=== PATIENT | female | born 1935 | race Caucasian/White ===

== ENCOUNTER 2022-08-19 16:27 | Inpatient (IN) | payer OTHER, MEDICAID ==
[~2022-08-19] VITALS: Ht 154.9 cm; Wt 79.8 kg
--- NOTE | 2022-08-19 16:29 | NUR ---
PATIENT BIBA TO BED 10
[2022-08-19 16:30] VITALS: BP 132/47
[2022-08-19] MEDS ORDERED: IPRATROPIUM 0.02% 0.5 MG/2.5 ML NEBU INH ONE (16:35)
[2022-08-19] MEDS ORDERED: ALBUTEROL 0.083% 2.5 MG/3 ML NEBU INH ONE (16:35)
[2022-08-19 17:00] LABS: BASOPHILS % (AUTO) 0.5 % (0.0-2.0); EOSINOPHILS # (AUTO) 0.1 K/uL (0-0.4); EOSINOPHILS % (AUTO) 1.2 % (0.0-4.0); HEMATOCRIT 37.6 % (36-48); HEMOGLOBIN 12.5 g/dL (12.0-16.0); LYMPHOCYTES # (AUTO) 1.5 K/uL (2.5-16.5); LYMPHOCYTES % (AUTO) 21.1 % (20.5-51.1); MEAN CORPUSCULAR HEMOGLOBIN 28 pg (27-31); MEAN CORPUSCULAR HGB CONC 33 g/dL (33-37); MONOCYTES # (AUTO) 1.2 K/uL (0.8-1.0); MONOCYTES % (AUTO) 16.9 % (1.7-9.3); NEUTROPHILS # (AUTO) 4.3 K/uL (1.8-7.7); NEUTROPHILS % (AUTO) 60.3 % (42.2-75.2); PLATELET COUNT (AUTO) 138 K/uL (140-450); RED BLOOD CELL COUNT(AUTO) 4.53 MIL/uL (4.20-5.40); RED CELL DISTRIBUTION WIDTH 19.1 % (11.6-13.7); WHITE BLOOD COUNT (AUTO) 7.1 K/uL (4.8-10.8)
--- NOTE | 2022-08-19 17:25 | NUR ---
ASSUMED PATIENT CARE, NURSING ASSESSMENT COMPLETED.
[2022-08-19] MEDS ORDERED: CEFEPIME 1,000 MG in DEXTROSE 5% 50 ML IV ONE (17:30)
[2022-08-19 17:32] LABS: ALBUMIN 3.1 g/dL (3.4-5.0); ANION GAP 11.6 (8-16); ASPARTATE AMINOTRANSFERASE 28 U/L (15-37); CARBON DIOXIDE 28.4 mmol/L (21-32); CHLORIDE 88 mmol/L (98-107); GLUCOSE 117 mg/dL (74-106); SODIUM SERUM 124 mmol/L (136-145); UREA NITROGEN, BLOOD 24 mg/dL (7-18)
[2022-08-19] MEDS ORDERED: CEFEPIME 1,000 MG VIAL ONE (17:33)
[2022-08-19] MEDS ORDERED: NACL 0.9% 1,000 ML IV ONE (19:00)
[2022-08-19 19:20] VITALS: BP 104/44
[2022-08-19] MEDS ORDERED: LIRA6SOL1 SQ (19:51)
[2022-08-19] MEDS ORDERED: INSU100V19 SQ (19:51)
[2022-08-19] MEDS ORDERED: TRAV5SOL OP (19:51)
[2022-08-19] MEDS ORDERED: GABA400C PO (19:51)
[2022-08-19] MEDS ORDERED: CARV6.25 PO (19:51)
[2022-08-19] MEDS ORDERED: SIMV-373 PO (19:51)
[2022-08-19] MEDS ORDERED: FLONAS NS (19:51)
[2022-08-19] MEDS ORDERED: LORA10TA19 PO (19:51)
[2022-08-19] MEDS ORDERED: ASPI-1822 PO (19:51)
[2022-08-19] MEDS ORDERED: FURO-572 PO (19:51)
[2022-08-19] MEDS ORDERED: METF-1139 PO (19:51)
[2022-08-19] MEDS ORDERED: POTA10TA70 PO (19:51)
[2022-08-19] MEDS ORDERED: DORZ10DR3 OP (19:51)
[2022-08-19] MEDS ORDERED: HUM SUBQ (19:51)
--- NOTE | 2022-08-19 20:28 | NUR ---
PT UPGRADED TO ICU FOR DESATING, YOLY PIEDRA.
[2022-08-19] MEDS ORDERED: DEXTROSE 50% 50 ML SYR IVP ONE (20:35)
[2022-08-19] MEDS ORDERED: MORPHINE SULFATE 2 MG/ML SYR IVP PRN (22:00)
[2022-08-19] MEDS ORDERED: DOCUSATE SODIUM 100 MG GELCAP PO PRN (22:00)
[2022-08-19] MEDS ORDERED: ONDANSETRON 4 MG/2 ML VIAL IVP PRN (22:00)
[2022-08-19] MEDS ORDERED: ZOLPIDEM 10 MG TAB PO PRN (22:00)
[2022-08-19] MEDS ORDERED: LORazepam 2 MG/ML VIAL IVP PRN (22:00)
[2022-08-19] MEDS ORDERED: ACETAMINOPHEN 325 MG TAB PO PRN (22:00)
[2022-08-19] MEDS ORDERED: PIPERACILLIN/TAZOBACTAM 3.375 GM VIAL IV ONE (22:05)
[2022-08-19 22:24] VITALS: BP 109/41
[2022-08-19] MEDS: PIPERACILLIN/TAZOBACTAM 3.375 GM in DEXTROSE 5% 50 ML IV SCH (22:25)
[2022-08-20] VITALS (12 sets, daily range): BP systolic 110–168; BP diastolic 41–81
--- NOTE | 2022-08-20 00:40 | NUR ---
RECEIVED PT. FROM ER VIA ZEINAB. REPORT GIVEN BY HERMINIO MORILLO. PT.WIDE AWAKE, MALIAN SPEAKING, ALERT AND ORIENTED.PT. ON BIPAP RATE 10, I-10,E-5,FIO2 40%. BILATERAL LUNG SOUNDS DIMINISHED. HR IN THE GREATER 40'S AND PER CLIENT ACCOUNT SPECIALISTMD AWARE AND OK WITH IT LONG BP WITHIN NORMAL LIMIT. RECEIVED V/S BP 113/47,R 16, O2 SAT 100%. IV SITE TO LEFT AC 18G FLUSHED AND CAPPED. SKIN INTACT. PLACED IN COMFORTABLE POSITION. PLACED CALL LIGHT WITHIN REACH. PROVIDED SAFE AND QUIET ENVIRONMENT. AT THE BEDSIDE. WILL CONT. TO MONITOR.
--- NOTE | 2022-08-20 03:15 | NUR ---
CALLED SHELLIE (PT.SON) AND ASKED HIM, IN THE EVENT THAT THE MOM CONDITION GOES DOWN AND DYING WHAT DOES HE WANTS TO DO AND SHELLIE STATED " DO EVERYTHING FOR MY MOM". WILL ENDORSE TO THE NEXT SHIFT.
[2022-08-20 05:23] LABS: BASOPHILS % (AUTO) 0.3 % (0.0-2.0); EOSINOPHILS % (AUTO) 0.5 % (0.0-4.0); HEMATOCRIT 37.1 % (36-48); HEMOGLOBIN 12.2 g/dL (12.0-16.0); LYMPHOCYTES # (AUTO) 1.5 K/uL (2.5-16.5); LYMPHOCYTES % (AUTO) 16.6 % (20.5-51.1); MEAN CORPUSCULAR HEMOGLOBIN 27 pg (27-31); MEAN CORPUSCULAR HGB CONC 33 g/dL (33-37); MEAN CORPUSCULAR VOLUME 82.8 fL (80-94); MONOCYTES # (AUTO) 1.6 K/uL (0.8-1.0); MONOCYTES % (AUTO) 17.9 % (1.7-9.3); NEUTROPHILS # (AUTO) 5.9 K/uL (1.8-7.7); NEUTROPHILS % (AUTO) 64.7 % (42.2-75.2); PLATELET COUNT (AUTO) 139 K/uL (140-450); RED BLOOD CELL COUNT(AUTO) 4.48 MIL/uL (4.20-5.40); RED CELL DISTRIBUTION WIDTH 18.6 % (11.6-13.7); WHITE BLOOD COUNT (AUTO) 9.1 K/uL (4.8-10.8)
[2022-08-20] MEDS ORDERED: PIPERACILLIN/TAZOBACTAM 3.375 GM VIAL IV ONE (05:43)
[2022-08-20] MEDS: PIPERACILLIN/TAZOBACTAM 3.375 GM in DEXTROSE 5% 50 ML IV SCH ×3 (05:54→20:49)
[2022-08-20 06:06] LABS: ANION GAP 13.4 (8-16); CHLORIDE 91 mmol/L (98-107); CREATININE 0.9 mg/dL (0.6-1.3); GLUCOSE 112 mg/dL (74-106); POTASSIUM 4.4 mmol/L (3.5-5.1); SODIUM SERUM 126 mmol/L (136-145); UREA NITROGEN, BLOOD 23 mg/dL (7-18)
--- NOTE | 2022-08-20 07:07 | NUR ---
ENDORSED PT.TO DAY SHIFT HERMINIO STEVENS FOR CONTINUITY OF CARE. ALL QUESTIONS ANSWERED.
--- NOTE | 2022-08-20 07:20 | NUR ---
RECEIVED BEDSIDE REPORT FROM VILLA INTERVENTIONAL PHYSIATRIST RN, FOR CONTINUITY OF CARE. PT AWAKE, TANZANIAN SPEAKING. PERRLA, 3MM BILATERALLY. BIPAP IN PLACE IPAP 10, EPAP 5, RATE 10, FIO2 35%. LUNG SOUNDS DIMINISHED BILATERALLY. AFIB ON MONITOR WITH INTERMITTENT BRADYCARDIA. 20G IV TO LAC INFUSING NS TKO. 1+ PITTING EDEMA TO BLE. STANDARD PRECAUTION, CALL LIGHT WITHIN REACH. HOB 30 DEGREES, WHEELS LOCKED AND IN LOWEST POSITION.
[2022-08-20] MEDS: FUROSEMIDE 40 MG/4 ML VIAL IVP SCH (08:19)
[2022-08-20] MEDS: ASPIRIN 81 MG TAB.CHEW PO SCH (08:19)
--- NOTE | 2022-08-20 08:22 | NUR ---
PT TAKEN OFF OF BIPAP AND PLACED ON 3L NC. SPO2 99%. PT NOT SOB AND NOT IN RESPIRATORY DISTRESS AT THIS TIME. NURSE AWARE. WILL CONTINUE TO MONITOR.
--- NOTE | 2022-08-20 08:27 | NUR ---
Tasqe TRANSLATION SERVICE USED FOR SIERRA LEONEAN. ID #[id number], EPITAXIAL REACTOR TECHNICIAN NAME IS TRE. PT UPDATED ON PLAN OF CARE. NO FURTHER QUESTIONS AT THIS TIME.
[2022-08-20] MEDS ORDERED: carvediloL 6.25 MG TAB PO SCH (09:00)
--- NOTE | 2022-08-20 09:16 | NUR ---
PATIENT HAS BEEN SCREENED AND CATEGORIZED MODERATE NUTRITION RISK. PATIENT WILL BE SEEN WITHIN 3-5 DAYS OF ADMISSION. REVIEWED BY VIRI MARRUFO RD
--- NOTE | 2022-08-20 12:15 | NUR ---
DC PLANNING ADMITTED TO ICU AN 87 YEAR OLD FEMALE PATIENT FOR SOB WITH LOW OXYGEN SAT08/19/22.PLACED ON CPAP AND NOW ON NC 3L.LASIX AND ZOSYN ON BOARD.PULMO AND CARDIO FOLLOWING.TENTATIVE DC PLAN BACK TO HOME WHEN PATIENT RESPONDS TO TREATMENT.CM TO FOLLOW.
--- NOTE | 2022-08-20 14:00 | NUR ---
GRANDDAUGHTER AT BEDSIDE.
--- NOTE | 2022-08-20 14:20 | NUR ---
PT. WITH LOW CEDRIC SCALE AT MODERATE TO HIGH RISK, CONTINUE TO FOLLOW PRESSURE INJURY PREVENTION INTERVENTIONS. -POSITIONING: TURN AND REPOSITION PATIENT Q 2H OR SOONER USE PILLOWS TO KEEP BONY PROMINENCES FROM DIRECT CONTACT WITH SURFACES USE REPOSITIONING WEDGES TO PROVIDE 30-DEGREE ANGLE FOR SIDE LYING POSITIONS OFFLOADING OR FOAM DRESSING TO ALL TUBING TO PREVENT MEDICAL DEVICES RELATED PRESSURE INJURY -RE-EVALUATING AND MANAGING INCONTINENCE MONITOR SKIN CONDITION DURING POSITION CHANGE DO NOT MASSAGE REDNESS, BONY PROMINENCES FREQUENT ABIEL-CARE AND PROVIDE BARRIER CREAMS PRN IF SOILING MOISTURE CONTROL BY OFFER BED GARG/URINAL /ABSORBENT PAD TO WICK AND HOLD MOISTURE KEEP SKIN DRY AND PROTECT FROM FRICTION -MANAGE FRICTION/SHEAR/MOBILITY KEEP HOB AT THE LOWEST LEVEL OF ELEVATION NO MORE THAN 30 DEGREE UNLESS OTHERWISE CONTRAINDICATED USE LIFT SHEET OR TRANSFER DEVICE TO MOVE PATIENT AND PREVENT LATERAL SHEER. PROTECT HEELS, ELBOWS BONY PROMINENCES WITH SKIN BERRIES OR FOAM DRESSING IF EXPOSED TO FRICTION OFFLOAD BILATERAL HEELS BY PLACING PILLOWS UNDER CALVES AT ALL TIMES, UNLESS OTHERWISE CONTRAINDICATED -PRESSURE REDISTRIBUTION SURFACE THERAPY JESUS MANUEL ISOFLEX MATTRESS -NUTRITION: PLEASE FOLLOW RD RECOMMENDATIONS AND OFFER NUTRITION SUPPLEMENTS IF ORDERED. PLEASE CONTACT WOUND CARE NURSE FOR ANY QUESTION AND CHANGE OF WOUND CONDITION.
[2022-08-20] MEDS: AZITHROMYCIN 500 MG in DEXTROSE 5% 250 ML IV SCH (14:45)
--- NOTE | 2022-08-20 16:05 | NUR ---
DUMP OPERATOR AT BEDSIDE
--- NOTE | 2022-08-20 18:05 | NUR ---
FAMILY VISITING AT BEDSIDE.
--- NOTE | 2022-08-20 19:03 | NUR ---
ENDORSED BEDSIDE REPORT TO HAYDE SUPERVISOR GELATIN PLANT RN.
--- NOTE | 2022-08-20 19:04 | NUR ---
RECEIVED PATIENT REPORT FROM JESS DURHAM. PATIENT AWAKE IN BED. VITALS: T 97.8 F HR 68 SPO2 97% RR 42 BP 147/82. PT ON 1.5 L NC. LUNG SOUNDS DIMINISHED. EDEMA NOTED ON LEFT LOWER EXTREMITY. PATIENT HAS PUREWICK IN PLACE TO SUCTION. LEFT FOREARM 20 G IV RUNNING TKO AT 3 ML/HR NS.
--- NOTE | 2022-08-20 19:37 | NUR ---
COMMUNICATED WITH PT USING JENNY, ASSESSED PT FOR PAIN AND COMFORT JENNY AGENT: CARLYN ID:[id number]
[2022-08-20] MEDS: carvediloL 12.5 MG TAB PO SCH (20:48)
[2022-08-20] MEDS ORDERED: CLONIDINE HYDROCHLORIDE 0.1 MG TAB ONE (23:43)
[2022-08-21] VITALS (9 sets, daily range): BP systolic 105–176; BP diastolic 45–83
--- NOTE | 2022-08-21 01:17 | NUR ---
PT GIVEN ATIVAN AT 2320 08/20/22 FOR RESTLESSNESS. PT NOTED TO BE CONFUSED AT 0117 PATIENT IS MUMBLING AND PULLING AT CLOTHES AND LINES.
--- NOTE | 2022-08-21 02:30 | NUR ---
PATIENT NOTED WITH PUREWICK IN HAND, EYES REMAIN CLOSED AND MUMBLING. ATTEMPTED TO PUT PUREWICK BACK IN PLACE PATIENT RESISTED WITH HANDS PUREWICK DISCONTINUED.
[2022-08-21] MEDS: CLONIDINE HYDROCHLORIDE 0.1 MG TAB PO PRN (05:24)
[2022-08-21] MEDS: PIPERACILLIN/TAZOBACTAM 3.375 GM in DEXTROSE 5% 50 ML IV SCH ×3 (05:25→21:25)
[2022-08-21 05:31] LABS: BASOPHILS % (AUTO) 0.4 % (0.0-2.0); EOSINOPHILS % (AUTO) 0.3 % (0.0-4.0); HEMATOCRIT 38.9 % (36-48); HEMOGLOBIN 12.7 g/dL (12.0-16.0); LYMPHOCYTES # (AUTO) 1.6 K/uL (2.5-16.5); LYMPHOCYTES % (AUTO) 19.6 % (20.5-51.1); MEAN CORPUSCULAR HEMOGLOBIN 27 pg (27-31); MEAN CORPUSCULAR HGB CONC 33 g/dL (33-37); MEAN CORPUSCULAR VOLUME 83.2 fL (80-94); MONOCYTES # (AUTO) 1.5 K/uL (0.8-1.0); MONOCYTES % (AUTO) 19.3 % (1.7-9.3); NEUTROPHILS # (AUTO) 4.8 K/uL (1.8-7.7); NEUTROPHILS % (AUTO) 60.4 % (42.2-75.2); PLATELET COUNT (AUTO) 141 K/uL (140-450); RED BLOOD CELL COUNT(AUTO) 4.67 MIL/uL (4.20-5.40); RED CELL DISTRIBUTION WIDTH 18.9 % (11.6-13.7)
[2022-08-21 06:16] LABS: CHLORIDE 90 mmol/L (98-107); POTASSIUM 3.3 mmol/L (3.5-5.1); SODIUM SERUM 128 mmol/L (136-145)
[2022-08-21 06:17] LABS: ANION GAP 10.4 (8-16); CARBON DIOXIDE 30.9 mmol/L (21-32); GLUCOSE 253 mg/dL (74-106); UREA NITROGEN, BLOOD 17 mg/dL (7-18)
--- NOTE | 2022-08-21 07:07 | NUR ---
BEDSIDE REPORT GIVEN TO JESS DURHAM.
--- NOTE | 2022-08-21 07:10 | NUR ---
RECEIVED BEDSIDE REPORT FROM HAYDE APPLICATIONS INTERN RN, FOR CONTINUITY OF CARE. PT SLEEPING WITH EYES CLOSED AT THIS TIME, RESPIRATIONS EVEN AND UNLABORED. PERRLA, 3MM BILATERALLY. 1.5L NC. AFIB ON MONITOR. 20G IV TO LAC INFUSING NS TKO. MINIMAL NONPITTING EDEMA TO BLE. STANDARD PRECAUTION, CALL LIGHT WITHIN REACH. HOB 30 DEGREES, WHEELS LOCKED AND IN LOWEST POSITION.
[2022-08-21] MEDS: POTASSIUM CHLORIDE 10 MEQ TABER PO PRN (07:34)
[2022-08-21] MEDS: MAG SULF 2000 MG/WATER PREMIX 50 ML IV PRN (07:36)
[2022-08-21] MEDS ORDERED: DEXTROSE 50% 50 ML SYR IVP PRN (08:45)
--- NOTE | 2022-08-21 08:45 | NUR ---
ON OR ABOUT THIS TIME DR. TOY FREDERICK ROUNDING IN ICU; PER RODNEY/CORPORATE VP ADVERTISING & ONLINE AGUSTIN FREDERICK HHN Q6 AND PRN ALBUTEROL AND ATROVENT OXYGEN SATURATIONS GREATER THAN 92% OKAY FOR DIRECTOR CLINICAL RESEARCH TO ORDER
[2022-08-21] MEDS: carvediloL 12.5 MG TAB PO SCH ×2 (08:47→21:25)
[2022-08-21] MEDS: ASPIRIN 81 MG TAB.CHEW PO SCH (08:47)
[2022-08-21] MEDS: FUROSEMIDE 40 MG/4 ML VIAL IVP SCH (08:47)
[2022-08-21] MEDS ORDERED: ALBUTEROL 0.083% 2.5 MG/3 ML NEBU INH PRN (09:20)
[2022-08-21] MEDS ORDERED: IPRATROPIUM 0.02% 0.5 MG/2.5 ML NEBU INH PRN (09:20)
--- NOTE | 2022-08-21 09:33 | NUR ---
[facility] TO EDUCATE PT ON GREENE INSERTION PROCEDURE. PT AGREED. NO FURTHER QUESTIONS AT THIS TIME. FEDERAL APPELLATE LAW CLERK ID [id number], ARELIS.
--- NOTE | 2022-08-21 09:45 | NUR ---
INSERTED 16FR GREENE WITH STERILE TECHNIQUE. IMMEDIATE RETURN OF CLEAR YELLOW URINE. PT TOLERATED WELL.
[2022-08-21] MEDS: BLOOD GLUCOSE MONITORING 1 DEV DEV FS SCH ×3 (11:47→21:25)
[2022-08-21] MEDS: INSULIN LISPRO SLIDING SCALE 100 UNITS/ML VIAL SUBQ PRN ×2 (11:51→16:40)
[2022-08-21] MEDS: AZITHROMYCIN 500 MG in DEXTROSE 5% 250 ML IV SCH (13:38)
[2022-08-21] MEDS: ALBUTEROL 0.083% 2.5 MG/3 ML NEBU INH SCH ×2 (13:46→19:19)
[2022-08-21] MEDS: IPRATROPIUM 0.02% 0.5 MG/2.5 ML NEBU INH SCH ×2 (13:46→19:19)
--- NOTE | 2022-08-21 14:20 | NUR ---
20G IV TO LAC LEAKING. INSERTED NEW 22G IV TO R FA. DC LAC IV.
--- NOTE | 2022-08-21 17:08 | NUR ---
SON AT BEDSIDE. UPDATED ON POC. NO FURTHER QUESTIONS AT THIS TIME.
--- NOTE | 2022-08-21 19:20 | NUR ---
ENDORSED BEDSIDE REPORT TO FEATHER SHAPER PARKING ENFORCEMENT SPECIALISTMARY ANN, FOR CONTINUITY OF CARE.
[2022-08-22] VITALS (7 sets, daily range): BP systolic 106–120; BP diastolic 54–87
[2022-08-22] MEDS: IPRATROPIUM 0.02% 0.5 MG/2.5 ML NEBU INH SCH ×4 (01:39→19:00)
[2022-08-22] MEDS: ALBUTEROL 0.083% 2.5 MG/3 ML NEBU INH SCH ×4 (01:39→19:00)
[2022-08-22] MEDS: PIPERACILLIN/TAZOBACTAM 3.375 GM in DEXTROSE 5% 50 ML IV SCH ×2 (04:58→13:21)
[2022-08-22 05:51] LABS: BASOPHILS % (AUTO) 0.4 % (0.0-2.0); EOSINOPHILS # (AUTO) 0.1 K/uL (0-0.4); EOSINOPHILS % (AUTO) 0.8 % (0.0-4.0); HEMATOCRIT 35.5 % (36-48); HEMOGLOBIN 11.7 g/dL (12.0-16.0); LYMPHOCYTES # (AUTO) 1.6 K/uL (2.5-16.5); LYMPHOCYTES % (AUTO) 17.3 % (20.5-51.1); MEAN CORPUSCULAR HEMOGLOBIN 27 pg (27-31); MEAN CORPUSCULAR HGB CONC 33 g/dL (33-37); MEAN CORPUSCULAR VOLUME 82.6 fL (80-94); MONOCYTES # (AUTO) 1.3 K/uL (0.8-1.0); MONOCYTES % (AUTO) 13.5 % (1.7-9.3); NEUTROPHILS # (AUTO) 6.4 K/uL (1.8-7.7); PLATELET COUNT (AUTO) 141 K/uL (140-450); RED BLOOD CELL COUNT(AUTO) 4.29 MIL/uL (4.20-5.40); RED CELL DISTRIBUTION WIDTH 18.8 % (11.6-13.7); WHITE BLOOD COUNT (AUTO) 9.4 K/uL (4.8-10.8)
[2022-08-22 06:46] LABS: CARBON DIOXIDE 28.1 mmol/L (21-32); CHLORIDE 93 mmol/L (98-107); CREATININE 0.9 mg/dL (0.6-1.3); GLUCOSE 137 mg/dL (74-106); POTASSIUM 3.1 mmol/L (3.5-5.1); SODIUM SERUM 131 mmol/L (136-145); UREA NITROGEN, BLOOD 14 mg/dL (7-18)
[2022-08-22] MEDS: BLOOD GLUCOSE MONITORING 1 DEV DEV FS SCH ×4 (07:30→21:00)
--- NOTE | 2022-08-22 07:30 | NUR ---
RECRIVED REPORT FROM EVON RN, PT. IS AWAKE AND ALERT AT THE TIME. SKIN DRY AND WARM TO TOUCH. BREATHING WITH O2 2LN/C O2SAT 98% , IV FLUID ON RT ARM TKO. GREENE CATH DRAIN DARK ROSMERY URINEWITH SEDAMEN
--- NOTE | 2022-08-22 08:30 | NUR ---
SEEN BY DR. FREDERICK AT BEDSIDE, ORDER RECEIVED.
--- NOTE | 2022-08-22 08:30 | NUR ---
BLOOD GLUCOSE 299 INSULIN GIVEN ORDERED.
[2022-08-22] MEDS: ASPIRIN 81 MG TAB.CHEW PO SCH (08:55)
[2022-08-22] MEDS: FUROSEMIDE 40 MG/4 ML VIAL IVP SCH (08:55)
[2022-08-22] MEDS: carvediloL 12.5 MG TAB PO SCH (08:55)
[2022-08-22] MEDS: POTASSIUM CHLORIDE 20% 40 MEQ/15 ML UDC PO SCH ×2 (09:00→13:13)
[2022-08-22] MEDS: INSULIN LISPRO SLIDING SCALE 100 UNITS/ML VIAL SUBQ PRN ×2 (09:57→12:19)
--- NOTE | 2022-08-22 11:45 | NUR ---
RECEIVED PT REPORT FROM TAMANNA DURHAM. PT WAS IN ROOM 126A UPON ENTERING. NOT NOTIFIED WHEN PATIENT ARRIVED. PT IS A&OX4, APPEARS CALM. NO VISIBLE S/S OF DISTRESS OR DISCOMFORT. DENIES PAIN OR SOB. PT ORIENTED TO CALL LIGHT AND ROOM. ANSWERED PT QUESTIONS ABOUT ROOM NUMBER AND CARE. IV PUMP BROUGHT TO ROOM. CALL LIGHT IS WITHIN REACH, ALL NEEDS HAVE BEEN MET AT THIS TIME.
--- NOTE | 2022-08-22 12:00 | NUR ---
pt, transfer to 126 in bed , pt.is stable during transfer.
[2022-08-22] MEDS: AZITHROMYCIN 500 MG in DEXTROSE 5% 250 ML IV SCH (13:09)
--- NOTE | 2022-08-22 15:27 | NUR ---
DC PLANNING ASSESSMENT COMPLETE PLEASE REFER TO ASSESSMENT FOR ADDITIONAL DETAILS PTS SONSHELLIE, REPORTS DC PLAN IS TO RETURN HOME AND RESUME HOME HEALTH ONCE MEDICALLY STABLE. FAMILY TO PROVIDE TRANSPORTATION. Addendum: 08/22/22 at 1528 by Logan Rojo SS Amended: Links added.
[2022-08-22] MEDS: MAG SULF 2000 MG/WATER PREMIX 50 ML IV PRN (18:43)
--- NOTE | 2022-08-22 18:58 | NUR ---
PT IS RESTING IN BED SEMI FOWLERS WITH OU CLOSED. NO VISIBLE S/S OF DISTRESS, DISCOMFORT, PAIN OR SOB. CALL LIGHT IS WITHIN REACH, ALL NEEDS HAVE BEEN MET AT THIS TIME. WILL ENDORSE TO NOC SHIFT NURSE.
--- NOTE | 2022-08-22 19:14 | NUR ---
TEXTED DR. NEWSOME TO REPORT THAT PATIENT IS UNABLE TO CHEW SOLID FOOD. HOWEVER, SHE WAS ABLE TO CHEW AND EAT SOFT FOOD. REQUESTED DIET CHANGE. WILL ENDORSE TO DAYANA SINGH.
--- NOTE | 2022-08-22 20:00 | NUR ---
PM NURSING NARRATIVE (OPENING) HAND-OFF REPORT RECEIVED FROM SHIRLENE DURHAM FOR CONTINUITY OF CARE FOLLOWING BEDSIDE ROUNDS. REPORTED: DX PNA BI-PAP SOB, SIERRA LEONEAN SPEAKING ONLY, SON VISITS, A/OX4, O2 2L/NC 96%, RHONCHI IN BASES BILAT, GREENE WITH SMALL CLOTS AND RED TINGED URINE, K=3.1 COVERED WITH 40 MEQX2 ORALLY. MAG 1.6 COVERED WITH 2 GRAMS, CCHO FEEDER (CHECKING ON MECH SOFT), PLAN:CONT 02,PULMO AND CARDIO CONSULT AND LASIX AND ZOSYN ORDERED. PT RECEIVED AND NOTED SAME ABOVE WITH FINE RED STREAK IN GREENE TUBING AND ROSMERY/BLUSH-LIKE COLORED URINE IN BAG. RAC 20 GA SL. CONT WITH MEDS ORDERED.
[2022-08-22] MEDS ORDERED: PIPERACILLIN/TAZOBACTAM 3.375 GM VIAL IV ONE (23:52)
[2022-08-23] VITALS: BP 110/76
--- NOTE | 2022-08-23 | NUR ---
PT CONT RESTING NO C/O OF PAIN ALTHOUGH SON THOUGHT SHE MAY BE IN PAIN. PT MOTIONED RESTING GOOD. WS ONLY "FRIO" AND WARM BLANKET GIVEN OUT OF OVEN AND NESTLED NECK IN HEAD IN TOWEL. SMILED AND WENT TO SLEEP.
[2022-08-23] MEDS: PIPERACILLIN/TAZOBACTAM 3.375 GM in DEXTROSE 5% 50 ML IV SCH ×4 (00:03→22:41)
[2022-08-23] MEDS: carvediloL 12.5 MG TAB PO SCH ×3 (00:05→22:29)
[2022-08-23] MEDS: INSULIN LISPRO SLIDING SCALE 100 UNITS/ML VIAL SUBQ PRN ×4 (00:23→22:38)
--- NOTE | 2022-08-23 02:00 | NUR ---
PT CONTINUES SAME. NO INCREASE IN RED STREAK IN GREENE TUBE. CONT TO MONITOR AND ASSIST NEEDED.
[2022-08-23] MEDS: ALBUTEROL 0.083% 2.5 MG/3 ML NEBU INH SCH ×4 (03:33→19:00)
[2022-08-23] MEDS: IPRATROPIUM 0.02% 0.5 MG/2.5 ML NEBU INH SCH ×4 (03:33→19:00)
[2022-08-23 04:00] VITALS: BP 110/76
--- NOTE | 2022-08-23 04:00 | NUR ---
PT DENIES NEED TO "POO POO". 450 FROM [facility]
[2022-08-23] MEDS ORDERED: PIPERACILLIN/TAZOBACTAM 3.375 GM VIAL IV ONE (06:16)
[2022-08-23 06:31] LABS: BASOPHILS % (AUTO) 0.6 % (0.0-2.0); EOSINOPHILS # (AUTO) 0.1 K/uL (0-0.4); EOSINOPHILS % (AUTO) 0.9 % (0.0-4.0); HEMATOCRIT 37.7 % (36-48); HEMOGLOBIN 12.3 g/dL (12.0-16.0); LYMPHOCYTES # (AUTO) 1.5 K/uL (2.5-16.5); MEAN CORPUSCULAR HEMOGLOBIN 27 pg (27-31); MEAN CORPUSCULAR HGB CONC 33 g/dL (33-37); MEAN CORPUSCULAR VOLUME 83.6 fL (80-94); MONOCYTES # (AUTO) 1.2 K/uL (0.8-1.0); MONOCYTES % (AUTO) 15.1 % (1.7-9.3); NEUTROPHILS % (AUTO) 64.4 % (42.2-75.2); PLATELET COUNT (AUTO) 146 K/uL (140-450); RED BLOOD CELL COUNT(AUTO) 4.52 MIL/uL (4.20-5.40); RED CELL DISTRIBUTION WIDTH 19.3 % (11.6-13.7); WHITE BLOOD COUNT (AUTO) 7.7 K/uL (4.8-10.8)
[2022-08-23] MEDS: BLOOD GLUCOSE MONITORING 1 DEV DEV FS SCH ×4 (06:45→21:00)
[2022-08-23 06:46] LABS: ANION GAP 10.1 (8-16); CARBON DIOXIDE 30.5 mmol/L (21-32); CHLORIDE 94 mmol/L (98-107); CREATININE 0.8 mg/dL (0.6-1.3); GLUCOSE 150 mg/dL (74-106); POTASSIUM 3.6 mmol/L (3.5-5.1); SODIUM SERUM 131 mmol/L (136-145); UREA NITROGEN, BLOOD 13 mg/dL (7-18)
--- NOTE | 2022-08-23 07:30 | NUR ---
PM NURSING NARRATIVE (CLOSING) HAND-OFF REPORT TO JHON RN FOR CONTINUITY OF CARE. REPORTED: RED STREAK IN PT GREENE BAG. ACCU CHECK 198 @HS AND 135 THIS AM. ENDORSE POSSIBLE CHANGE TO [facility] SOFT CCHO DIET.. DENIES PAIN SATTING 96% ON 2L/NC. NO COUGHING. RELINQUISHED CARE OF PT AT THIS TIME.
[2022-08-23 08:00] VITALS: BP 138/61
[2022-08-23] MEDS: ASPIRIN 81 MG TAB.CHEW PO SCH (09:00)
[2022-08-23] MEDS: FUROSEMIDE 40 MG/4 ML VIAL IVP SCH (09:00)
[2022-08-23 12:00] VITALS: BP 117/57
[2022-08-23] MEDS: AZITHROMYCIN 500 MG in DEXTROSE 5% 250 ML IV SCH (14:58)
[2022-08-23 16:00] VITALS: BP 112/51
--- NOTE | 2022-08-23 19:20 | NUR ---
ENDORSED PATIENT TO PM SHIFT NURSE FOR CONTINUITY OF CARE.
--- NOTE | 2022-08-23 19:30 | NUR ---
PM NURSING NARRATIVE (OPENING) HAND-OFF REPORT RECEIVED FROM JHON. 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 KEPT ON NIGHT INTERVENTIONAL RADIOLOGY TECH PLASTIC BAG. OTHERWISE UNEVENTFUL DAY. ASSUMED CARE OF PT AT THIS TIME. DAUGHTER IN LAW AT BEDSIDE.
[2022-08-23 20:00] VITALS: BP 147/52
--- NOTE | 2022-08-23 21:00 | NUR ---
BMX1 MODERATE AMT. BROWN SOFT FORMED.
[2022-08-24] VITALS: BP 130/72
[2022-08-24] MEDS: IPRATROPIUM 0.02% 0.5 MG/2.5 ML NEBU INH SCH ×4 (01:00→19:00)
[2022-08-24] MEDS: ALBUTEROL 0.083% 2.5 MG/3 ML NEBU INH SCH ×4 (01:00→19:00)
--- NOTE | 2022-08-24 02:00 | NUR ---
CHARGE NURSE MADE AWARE MAROON COLORED URINE IN GREENE BAG AND PT ON HEPARIN SQ. PLT 141. WILL CONT TO ENDORSE TO A.M. STAFF FOR MD TO ADDRESS ON ROUNDS. PT DOES NOT C/O OF PAIN A RESULT BUT NOTED COLOR IS MORE OPAQUE. URINE NO LONGER TRANSPARENT.
[2022-08-24 04:00] VITALS: BP 138/75
[2022-08-24] MEDS: PIPERACILLIN/TAZOBACTAM 3.375 GM in DEXTROSE 5% 50 ML IV SCH (04:29)
[2022-08-24 05:50] LABS: BASOPHILS % (AUTO) 0.4 % (0.0-2.0); EOSINOPHILS # (AUTO) 0.1 K/uL (0-0.4); EOSINOPHILS % (AUTO) 1.3 % (0.0-4.0); HEMOGLOBIN 13.1 g/dL (12.0-16.0); LYMPHOCYTES # (AUTO) 1.6 K/uL (2.5-16.5); LYMPHOCYTES % (AUTO) 17.4 % (20.5-51.1); MEAN CORPUSCULAR HEMOGLOBIN 27 pg (27-31); MEAN CORPUSCULAR HGB CONC 33 g/dL (33-37); MEAN CORPUSCULAR VOLUME 83.4 fL (80-94); MONOCYTES # (AUTO) 1.4 K/uL (0.8-1.0); MONOCYTES % (AUTO) 15.1 % (1.7-9.3); NEUTROPHILS # (AUTO) 5.9 K/uL (1.8-7.7); NEUTROPHILS % (AUTO) 65.8 % (42.2-75.2); PLATELET COUNT (AUTO) 142 K/uL (140-450); RED BLOOD CELL COUNT(AUTO) 4.79 MIL/uL (4.20-5.40); RED CELL DISTRIBUTION WIDTH 19.5 % (11.6-13.7); WHITE BLOOD COUNT (AUTO) 8.9 K/uL (4.8-10.8)
[2022-08-24 06:28] LABS: ANION GAP 12.1 (8-16); CARBON DIOXIDE 28.3 mmol/L (21-32); CHLORIDE 91 mmol/L (98-107); CREATININE 0.8 mg/dL (0.6-1.3); GLUCOSE 147 mg/dL (74-106); POTASSIUM 3.4 mmol/L (3.5-5.1); SODIUM SERUM 128 mmol/L (136-145); UREA NITROGEN, BLOOD 16 mg/dL (7-18)
[2022-08-24] MEDS: BLOOD GLUCOSE MONITORING 1 DEV DEV FS SCH ×4 (07:08→21:25)
--- NOTE | 2022-08-24 07:30 | NUR ---
PM NURSING NARRATIVE (CLOSING) HAND-OFF REPORT TO RETURNING RN JHON. ENDORSED GREENE OUTPUT CONT'D MAROON IN COLOR VERIFY WITH MD CONCERNING PT REMAINS ON HEPARIN SQ AND IF ANY ORDERS. 2 B.M'S THIS SHIFT. RESTFUL NOC. NO DISTRESS. FAMILY REMAINS VERY SUPPORTIVE. RELINQUISHED CARE OF PT AT THIS TIME.
--- NOTE | 2022-08-24 07:50 | NUR ---
RECEIVED PATIENT FROM PM NURSE FOR CONTINUATION OF CARE. PATIENT SEEN AWAKE ON BED DRINKING WATER. PATIENT MONITORING AND CARE CONTINUED.
[2022-08-24 08:00] VITALS: BP 160/80
[2022-08-24] MEDS: POTASSIUM CHLORIDE 10 MEQ TABER PO PRN (08:52)
[2022-08-24] MEDS: carvediloL 12.5 MG TAB PO SCH (08:53)
[2022-08-24] MEDS: ASPIRIN 81 MG TAB.CHEW PO SCH (08:53)
[2022-08-24] MEDS: FUROSEMIDE 40 MG/4 ML VIAL IVP SCH (09:54)
[2022-08-24 12:00] VITALS: BP 147/61
[2022-08-24] MEDS: AZITHROMYCIN 500 MG in DEXTROSE 5% 250 ML IV SCH (14:00)
--- NOTE | 2022-08-24 14:03 | NUR ---
PATIENT COUD Addendum: 08/24/22 at 1413 by JHON GUAMAN RN PATIENT COULD NOT TOLERATE ROOM AIR. O2 SAT 80-92%. PLACED PATIENT BACK TO 2L O2 VIA NASAL CANULA. NOTIFIED. Addendum: 08/24/22 at 1415 by JHON GUAMAN RN PATIENT COULD NOT TOLERATE ROOM AIR. O2 SAT 80-82%. PLACE PATIENT ON 2L O2 VIA NASAL CANULA. o2 SAT NOW AT 98%. NOTIFIED.
[2022-08-24 16:00] VITALS: BP 136/83
--- NOTE | 2022-08-24 16:00 | NUR ---
PATIENT HAD 207 BLOOD GLUCOSE, COVERED WITH 4 UNITS INSULIN
[2022-08-24] MEDS: INSULIN LISPRO SLIDING SCALE 100 UNITS/ML VIAL SUBQ PRN ×2 (18:33→21:49)
--- NOTE | 2022-08-24 19:30 | NUR ---
ENDORSED PATIENT TO PM NURSE FOR CONTINUATION OF CARE.
--- NOTE | 2022-08-24 19:58 | NUR ---
08/24/22 RD INITIAL ASSESSMENT COMPLETED. PLEASE REFER TO NUTRITION ASSESSMENT UNDER CARE ACTIVITY FOR ESTIMATED NUTRITIONAL NEEDS. 1. CONTINUE CARDIAC / 60 GRAMS CCHO DIET TOLERATED 2. MONITOR GLUCOSE LEVELS 3. RD TO FOLLOW-UP 2-3 DAYS, HIGH RISK ANNELISE AVILEZ RD
[2022-08-24 20:00] VITALS: BP 104/65
[2022-08-24] MEDS: APIXABAN 2.5 MG TAB PO SCH (21:51)
[2022-08-25] VITALS: BP 168/79
--- NOTE | 2022-08-25 | NUR ---
BP= 168/79 HR=70 CLONIDINE 0.1MG PO
[2022-08-25] MEDS: CLONIDINE HYDROCHLORIDE 0.1 MG TAB PO PRN (00:46)
[2022-08-25] MEDS: IPRATROPIUM 0.02% 0.5 MG/2.5 ML NEBU INH SCH ×2 (01:00→14:44)
[2022-08-25] MEDS: ALBUTEROL 0.083% 2.5 MG/3 ML NEBU INH SCH ×2 (01:00→14:44)
--- NOTE | 2022-08-25 02:30 | NUR ---
CLONIDINE 0.1 MG EFFECTIVE B/P 124/68
[2022-08-25 06:10] LABS: ANION GAP 9.5 (8-16); CARBON DIOXIDE 29.4 mmol/L (21-32); CHLORIDE 92 mmol/L (98-107); CREATININE 0.6 mg/dL (0.6-1.3); GLUCOSE 120 mg/dL (74-106); POTASSIUM 3.9 mmol/L (3.5-5.1); SODIUM SERUM 127 mmol/L (136-145); UREA NITROGEN, BLOOD 13 mg/dL (7-18)
[2022-08-25 06:14] LABS: BASOPHILS % (AUTO) 0.4 % (0.0-2.0); EOSINOPHILS # (AUTO) 0.1 K/uL (0-0.4); EOSINOPHILS % (AUTO) 0.9 % (0.0-4.0); HEMATOCRIT 39.3 % (36-48); LYMPHOCYTES # (AUTO) 1.6 K/uL (2.5-16.5); MEAN CORPUSCULAR HEMOGLOBIN 28 pg (27-31); MEAN CORPUSCULAR HGB CONC 33 g/dL (33-37); MEAN CORPUSCULAR VOLUME 83.6 fL (80-94); MONOCYTES # (AUTO) 1.2 K/uL (0.8-1.0); MONOCYTES % (AUTO) 14.4 % (1.7-9.3); NEUTROPHILS # (AUTO) 5.2 K/uL (1.8-7.7); NEUTROPHILS % (AUTO) 64.3 % (42.2-75.2); PLATELET COUNT (AUTO) 146 K/uL (140-450); RED CELL DISTRIBUTION WIDTH 19.3 % (11.6-13.7)
[2022-08-25] MEDS: BLOOD GLUCOSE MONITORING 1 DEV DEV FS SCH ×2 (07:16→12:03)
--- NOTE | 2022-08-25 07:54 | NUR ---
NURSES NOTE PATIENT RECEIVED AT BED SIDE , A/OX4 , ON NASAL CANULA 2 ,LITER O2 , VSS, AFIB ON MONITOR STANDER ISOLATION , BEDBOUND , INCONTINENT X2 , WITH GREENE CATHETER URIN BLOODY SKIN INTACT , NO COMPLAIN AT THIS TIME . IV SALINE LOCKED , ON CONSISTENT CARB DIET STILL UNDER OBSERVE .
[2022-08-25] MEDS: FUROSEMIDE 40 MG/4 ML VIAL IVP SCH (08:40)
[2022-08-25 09:00] VITALS: BP 165/76
[2022-08-25] MEDS: APIXABAN 2.5 MG TAB PO SCH (09:00)
[2022-08-25] MEDS ORDERED: lisinopriL 20 MG TAB PO SCH (09:00)
--- NOTE | 2022-08-25 09:26 | NUR ---
MD COMMUNICATION DR CHERRY NITRIFIED PATIENT HAS BLOODY URINE IF SHE WANTS ME TO GIVE BLOOD THINNER SHE CALLED BACK , NO DONT GIVE , SHE PUT ORDER FOR URINE CULTURE AND KIDNEYS AND BLADDER US .
[2022-08-25] MEDS: INSULIN LISPRO SLIDING SCALE 100 UNITS/ML VIAL SUBQ PRN (12:03)
[2022-08-25 12:31] VITALS: BP 149/70
--- NOTE | 2022-08-25 14:36 | NUR ---
PATIENT CHANGE NOW SHE HAS BOWEL MOVEMENT , FOR DISCHARGE TODAY TO HOME , PATIENT ALREADY HAS HOME HEALTH STILL UNDER OBSERVE FOR FINALIZED HOME MEDS .
[2022-08-25] MEDS ORDERED: APIX2.5 PO (14:59)
[2022-08-25] MEDS ORDERED: LISI20TA29 PO (14:59)
--- NOTE | 2022-08-25 15:44 | NUR ---
NURSES NOTE PATIENT A/OX4 , VSS , DISCHARGE HOME , MEDICATION RECONCILED TO HER FAMILY , DISCHARGE PACKET EXPLAIN FOR FAMILY , HER SON VERBALIZED UNDERSTANDING OF GIVEN , HER DOCUMENT SIGN AND PLACED ON CHART IV , ARM BAND AND HEART MONITOR REMOVED , ASSISTED TO LOBBY BY WHEEL CHAIR , AND PICKED UP BY HER SON.
== END 2022-08-25 15:30 | disposition home or self-care (01) | DRG 871 ==
LOC: MED 16:27 → MTU 20:28 → MIC 08-20 00:07 → MMU 08-22 11:05
PROC: 5A09357 Assistance with Respiratory Ventilation, Less than 24 Consecutive Hours, Continuous Positive Airway Pressure (ICD-10-PCS; principal; 2022-08-19)
DX: A41.9 Sepsis, unspecified organism (principal); I21.A1 Myocardial infarction type 2; J18.9 Pneumonia, unspecified organism; N17.0 Acute kidney failure with tubular necrosis; J96.01 Acute respiratory failure with hypoxia; I50.33 Acute on chronic diastolic (congestive) heart failure; J44.0 Chronic obstructive pulmonary disease with (acute) lower respiratory infection; E44.1 Mild protein-calorie malnutrition; J44.1 Chronic obstructive pulmonary disease with (acute) exacerbation; Z20.822 Contact with and (suspected) exposure to COVID-19; I11.0 Hypertensive heart disease with heart failure; I48.91 Unspecified atrial fibrillation; Z79.01 Long term (current) use of anticoagulants; Z79.82 Long term (current) use of aspirin; Z79.4 Long term (current) use of insulin; Z79.899 Other long term (current) drug therapy; Z68.33 Body mass index [BMI] 33.0-33.9, adult
CPT/HCPCS: 36415; 71045; 76770; 80048; 80053; 82948; 83735; 83880; 84484; 85025; 87081; 87086; 93005; 94640; 94660; 96361; 96365; 96375; 99291; J0456; J0692; J1644; J1940; J2060; J2543; J3475; J7060; J7613; J7644; Q0092